=== PATIENT | female | born 1945 | race African-American/Black ===

== ENCOUNTER 2019-08-04 08:27 | Day surgery (SDC) | payer OTHER ==
[2019-08-01 14:00] VITALS: BMI 30.7
[2019-08-04 09:59] VITALS: TEMP 97.5
[2019-08-04 11:08] VITALS: BP 138/53; PULSE 60
--- NOTE | 2019-08-05 12:36 | PATH ---
Surgical Pathology Report Patient Name: CARTER FARRIS [facility]. Rec. #: [id number] /Age/Gender: 1945 (Age: 73) / F Account: [id number] Location: [facility]-ENDOSCOPY Taken: 08/04/2019 Received: 08/04/2019 Reported: 08/05/2019 Physicians: Joy Hennessy M.D. Specimen(s) Received CECUM POLYP Clinical History History of adenomatous polyps Postoperative diagnosis: Diverticulosis, colon polyp Final Diagnosis CECUM, POLYP, BIOPSY: TUBULAR ADENOMA. SEPARATE FRAGMENT OF POLYPOID COLONIC MUCOSA WITH PROMINENT LYMPHOID AGGREGATE. Electronically Signed Vianca Toussaint M.D. Gross Description Received in formalin, labeled "cecum polyp biopsy" are 2 lynch, irregular portions of soft tissue averaging 0.3 cm. in greatest dimension. The specimens are submitted in toto in one cassette. DL/08/04/2019 saudi/08/04/2019
== END 2019-08-04 11:09 | disposition home or self-care (01) ==
LOC: JASU-ENDO 08:27
PROVIDERS: ATTEND Internal Medicine Gastroenterology
PROC: 0DBH8ZX Excision of Cecum, Via Natural or Artificial Opening Endoscopic, Diagnostic (ICD-10-PCS; principal; 2019-08-04 09:00)
DX: Z12.11 Encounter for screening for malignant neoplasm of colon (principal); Z86.010 Personal history of colon polyps; D12.0 Benign neoplasm of cecum; K64.8 Other hemorrhoids
CPT/HCPCS: 88305-TC